=== PATIENT | male | born 1940 | race Caucasian/White ===

== ENCOUNTER 2018-11-26 10:17 | Outpatient (CLI) | payer MEDICARE, BC ==
--- NOTE | 2018-11-26 11:14 | RAD ---
CHEST 2 VIEWS: HISTORY: Dyspnea. COMPARISON: 06/09/2017. FINDINGS: Heart size is within normal limits. Moderate-sized hiatal hernia. Minimal increased linear and inte rstitial markings and biapical pleural thickening, evidence for stable-appearing chronic lung changes . No confluent pneumonia, overt edema, or pleural effusion. IMPRESSION: Stable-appearing mild chronic changes. Stable moderate-sized hiatal hernia. Atherosclerosis of the aorta. No significant acute process. POS: OFF
== END 2018-11-26 10:18 | disposition home or self-care (01) ==
LOC: RAD 10:17
PROVIDERS: ATTEND Internal Medicine Critical Care Medicine
DX: R06.00 Dyspnea, unspecified (principal); K44.9 Diaphragmatic hernia without obstruction or gangrene; I70.0 Atherosclerosis of aorta
CPT/HCPCS: 71046

== ENCOUNTER 2019-06-20 10:08 | Outpatient (CLI) | payer MEDICARE, BC ==
--- NOTE | 2019-06-20 12:15 | RAD ---
PA AND LATERAL CHEST: Date: 06/20/19 INDICATION: History of dyspnea. COMPARISON: Prior exam dated 11/26/18. FINDINGS: Cardiomegaly and chronic lung changes are stable. No acute air space opacity, pleural effusion, or pn eumothorax evident. There is a moderate size hiatal hernia. There is diffuse osteopenia. IMPRESSION: No acute cardiopulmonary abnormality. POS: [facility] [place]
== END 2019-06-20 10:09 | disposition home or self-care (01) ==
LOC: RAD 10:08
PROVIDERS: ATTEND Internal Medicine Critical Care Medicine
DX: R06.00 Dyspnea, unspecified (principal)
CPT/HCPCS: 71046

== ENCOUNTER 2021-06-06 10:19 | Outpatient (CLI) | payer MEDICARE, BC | END 2021-06-06 10:20 | disposition home or self-care (01) | LOC: BICRAD 10:19 | PROVIDERS: ATTEND Internal Medicine Critical Care Medicine | DX: R06.00 Dyspnea, unspecified (principal); K44.9 Diaphragmatic hernia without obstruction or gangrene; R91.8 Other nonspecific abnormal finding of lung field | CPT/HCPCS: 71046 ==

== ENCOUNTER 2022-09-14 16:27 | Inpatient (IN) | payer MEDICARE, BC ==
[2022-09-14 17:56] LABS: #Eosinphils 0.2 thou/uL (0.0-0.7); #Lymphocytes 1.3 thou/uL (1.20-3.40); #Monocytes 0.7 thou/uL (0.11-0.59); #Neutrophils 3.1 thou/uL (1.40-6.50); %Basophils 0.4 % (0.0-1.0); %Eosinophils 3.4 % (0.0-10.0); %Neutrophils 58.2 % (42.0-75.0); Hemoglobin 14.8 g/dL (14.0-18.0); Mean Corpuscular HGB CONC 33.5 g/dL (32.0-36.0); Mean Corpuscular Hemoglobin 32.2 pg (27.0-31.0); Mean Corpuscular Volume 96.1 fl (78.0-98.0); Mean Platelet Volume 7.5 fL (7.4-10.4); Platelet Count 117 10x3/uL (130-400); RBC Distribution Width 11.5 % (11.5-14.5); White Blood Cell (WBC) Count 5.3 10x3/uL (4.8-10.8)
[2022-09-14 18:14] LABS: ALT (SGPT) 30 U/L (8-55); AST (SGOT) 31 U/L (5-34); Albumin 4.4 g/dL (3.4-4.8); Alkaline Phosphatase 50 U/L (40-110); Anion Gap 17 mmol/L (10-20); BUN (Urea Nitrogen) 19 mg/dL (8.4-25.7); Bilirubin, Total 0.9 mg/dL (0.2-1.2); CK (CPK) 125 U/L (30-200); Calc. Creatinine Clearance 0 mL/min (70-130); Calcium 9.2 mg/dL (7.8-10.44); Carbon Dioxide 24 mmol/L (23-31); Chloride 100 mmol/L (98-107); Estimated GFR 41; Globulin 3.2 g/dL (2.4-3.5); Glucose 83 mg/dL (83-110); Magnesium 1.8 mg/dL (1.6-2.6); Potassium 3.7 mmol/L (3.5-5.1); Protein, Total 7.6 g/dL (5.8-8.1); Sodium 137 mmol/L (136-145)
[2022-09-14] MEDS ORDERED: cefTRIAXone\\ROCEPHIN 1 GM VIAL ONE (18:23)
[2022-09-14 18:28] LABS: Platelet Morphology Comment Appears Decreased; RBC Morphology Normal
[2022-09-14] MEDS ORDERED: Labetalol HCl 100 MG/20 ML VIAL ONE (18:32)
[2022-09-14] MEDS ORDERED: Azithromycin 500 MG VIAL ONE (18:57)
[2022-09-14] MEDS ORDERED: Acetaminophen 650 MG Suppository ONE (19:56)
[2022-09-14] MEDS ORDERED: Acetaminophen 325 MG Suppository ONE (19:56)
[2022-09-14 20:25] LABS: Bacteria/HPF None Seen HPF (None Seen); Bilirubin Negative (Negative); Blood, Urine Negative (Negative); Clarity Clear (Clear); Glucose, Urine (Dipstick) Normal (Negative); Ketone, Urine Trace mg/dL (Negative); Leukocyte Negative Leu/uL (Negative); Mucous/LPF Rare LPF (<2+); Nitrite Negative (Negative); Protein, Urine (Dipstick) 50 mg/dL (Neg-Trace); RBC/HPF 0-3 HPF (0-3); Specific Gravity, Urine 1.022 (1.002-1.036); Squamous Epithelial 0-3 HPF (0-3); Urobilinogen Normal mg/dL (Less than 2); WBC/HPF 0-3 HPF (0-3)
[2022-09-14 20:30] LABS: Amphetamine Not Detected (NotDetected); Barbiturates Screen Not Detected (NotDetected); Benzodiazepine Screen Not Detected (NotDetected); Cocaine Metabolite Screen Not Detected (NotDetected); Methadone Not Detected (NotDetected); Methamphetamine Not Detected (NotDetected); Opiate Screen Not Detected (NotDetected); Oxycodone Screen Not Detected (NotDetected); Phencyclidine (PCP) Not Detected (NotDetected); THC/Cannabinoid Screen Not Detected (NotDetected); Tricyclic Screen Not Detected (NotDetected)
[2022-09-14] MEDS ORDERED: Ondansetron PF 4 MG/2 ML Vial IVP PRN (21:15)
[2022-09-14] MEDS ORDERED: Acetaminophen 325 MG TAB PO PRN (21:15)
[2022-09-14] MEDS ORDERED: Ondansetron ODT 4 MG TAB SL PRN (21:15)
[2022-09-15 04:23] VITALS: BMI 39.7
[2022-09-15] MEDS ORDERED: Benzonatate 100 MG CAP PO PRN (08:06)
[2022-09-15] MEDS ORDERED: Acetaminophen 325 MG TAB PO PRN (08:06)
[2022-09-15] MEDS ORDERED: Levothyroxine Sodium 75 MCG TAB PO SCH (08:15)
[2022-09-15] MEDS: Enoxaparin Sodium 40 MG/0.4 ML SYRINGE SC SCH (09:59)
[2022-09-15] MEDS: Hydrocortisone 10 mg Tablet PO SCH ×2 (10:00→21:30)
[2022-09-15] MEDS: Ezetimibe 10 MG TAB PO SCH (10:00)
[2022-09-15] MEDS: Aspirin Chewable 81 MG TAB PO SCH (10:00)
[2022-09-15] MEDS: Lisinopril 5 MG TAB PO SCH (10:00)
[2022-09-15] MEDS: cefTRIAXone\\ROCEPHIN 1 GM in Sodium Chloride 0.9% 100 ML IVPB SCH (18:13)
[2022-09-15] MEDS ORDERED: Atorvastatin Calcium 40 MG TAB PO SCH (21:00)
[2022-09-15] MEDS: Azithromycin 500 MG in Sodium Chloride 0.9% 250 ML 250 ML IVPB SCH (21:29)
[2022-09-15] MEDS ORDERED: Albuterol 200 PUFF (6.7GM INHALER) INH PRN (23:41)
[2022-09-16] MEDS: hydrALAZINE 20 MG/ML VIAL SLOW IVP PRN (04:44)
[2022-09-16 05:14] LABS: Anion Gap 13 mmol/L (10-20); BUN (Urea Nitrogen) 13 mg/dL (8.4-25.7); Calc. Creatinine Clearance 84 mL/min (70-130); Calcium 9.2 mg/dL (7.8-10.44); Carbon Dioxide 22 mmol/L (23-31); Chloride 103 mmol/L (98-107); Estimated GFR 62; Glucose 88 mg/dL (83-110); Potassium 4.1 mmol/L (3.5-5.1); Sodium 134 mmol/L (136-145)
[2022-09-16 05:50] LABS: Band 4 % (5-11); Eosinophils 1 % (0-10); Hemoglobin 13.9 g/dL (14.0-18.0); Lymphocytes 14 % (21-51); MDiff Complete? YES; Mean Corpuscular HGB CONC 34.2 g/dL (32.0-36.0); Mean Corpuscular Hemoglobin 32.3 pg (27.0-31.0); Mean Corpuscular Volume 94.4 fl (78.0-98.0); Mean Platelet Volume 7.9 fL (7.4-10.4); Monocytes 17 % (0-10); Neutrophil 59 % (42-75); Platelet Count 110 10x3/uL (130-400); Platelet Morphology Comment Appears Decreased; RBC Distribution Width 11.2 % (11.5-14.5); RBC Morphology Normal; Reactive Lymphocytes 5 % (0-10); Red Blood Cell (RBC) Count 4.29 mill/uL (4.70-6.10)
[2022-09-16] MEDS: Levothyroxine Sodium 75 MCG TAB PO SCH (06:24)
[2022-09-16] MEDS: Lisinopril 5 MG TAB PO SCH (08:54)
[2022-09-16] MEDS: Ezetimibe 10 MG TAB PO SCH (08:54)
[2022-09-16] MEDS: Aspirin Chewable 81 MG TAB PO SCH (08:54)
[2022-09-16] MEDS: Hydrocortisone 10 mg Tablet PO SCH ×2 (08:54→20:57)
[2022-09-16] MEDS: Enoxaparin Sodium 40 MG/0.4 ML SYRINGE SC SCH (08:55)
[2022-09-16] MEDS: cefTRIAXone\\ROCEPHIN 1 GM in Sodium Chloride 0.9% 100 ML IVPB SCH (16:45)
[2022-09-16] MEDS: NIRMATRELVIR 150 MG/RITONAVIR 100 MG PO SCH (20:54)
[2022-09-16] MEDS: Azithromycin 500 MG in Sodium Chloride 0.9% 250 ML 250 ML IVPB SCH (20:55)
[2022-09-17] MEDS: Levothyroxine Sodium 75 MCG TAB PO SCH (06:30)
[2022-09-17] MEDS: hydrALAZINE 20 MG/ML VIAL SLOW IVP PRN (06:30)
[2022-09-17] MEDS: Aspirin Chewable 81 MG TAB PO SCH (10:20)
[2022-09-17] MEDS: Enoxaparin Sodium 40 MG/0.4 ML SYRINGE SC SCH (10:20)
[2022-09-17] MEDS: Ezetimibe 10 MG TAB PO SCH (10:21)
[2022-09-17] MEDS: Lisinopril 5 MG TAB PO SCH (10:22)
[2022-09-17] MEDS: Hydrocortisone 10 mg Tablet PO SCH ×2 (10:22→20:57)
[2022-09-17] MEDS: NIRMATRELVIR 150 MG/RITONAVIR 100 MG PO SCH ×2 (10:23→20:57)
[2022-09-17] MEDS ORDERED: Zinc Sulfate 220 MG CAP PO SCH (12:45)
[2022-09-17] MEDS ORDERED: Ascorbic Acid 500 mg Chewable Tablet PO SCH (12:45)
[2022-09-17] MEDS: cefTRIAXone\\ROCEPHIN 1 GM in Sodium Chloride 0.9% 100 ML IVPB SCH (17:11)
[2022-09-17] MEDS: Azithromycin 500 MG in Sodium Chloride 0.9% 250 ML 250 ML IVPB SCH (20:57)
[2022-09-18] MEDS: Levothyroxine Sodium 75 MCG TAB PO SCH (06:18)
[2022-09-18] MEDS: Aspirin Chewable 81 MG TAB PO SCH (09:41)
[2022-09-18] MEDS: Enoxaparin Sodium 40 MG/0.4 ML SYRINGE SC SCH (09:41)
[2022-09-18] MEDS: Ascorbic Acid 500 mg Chewable Tablet PO SCH (09:41)
[2022-09-18] MEDS: Lisinopril 5 MG TAB PO SCH (09:42)
[2022-09-18] MEDS: Ezetimibe 10 MG TAB PO SCH (09:43)
[2022-09-18] MEDS: NIRMATRELVIR 150 MG/RITONAVIR 100 MG PO SCH (09:43)
[2022-09-18] MEDS: Zinc Sulfate 220 MG CAP PO SCH (09:43)
[2022-09-18] MEDS: Hydrocortisone 10 mg Tablet PO SCH ×2 (09:43→20:50)
[2022-09-18] MEDS: cefTRIAXone\\ROCEPHIN 1 GM in Sodium Chloride 0.9% 100 ML IVPB SCH (18:51)
[2022-09-18] MEDS: Azithromycin 500 MG in Sodium Chloride 0.9% 250 ML 250 ML IVPB SCH (20:50)
[2022-09-19] MEDS: NIRMATRELVIR 150 MG/RITONAVIR 100 MG PO SCH ×3 (01:05→19:28)
[2022-09-19] MEDS: Levothyroxine Sodium 75 MCG TAB PO SCH (05:20)
[2022-09-19] MEDS: Enoxaparin Sodium 40 MG/0.4 ML SYRINGE SC SCH (08:37)
[2022-09-19] MEDS: Ascorbic Acid 500 mg Chewable Tablet PO SCH (08:38)
[2022-09-19] MEDS: Zinc Sulfate 220 MG CAP PO SCH (08:38)
[2022-09-19] MEDS: Ezetimibe 10 MG TAB PO SCH (08:38)
[2022-09-19] MEDS: Aspirin Chewable 81 MG TAB PO SCH (08:38)
[2022-09-19] MEDS: Lisinopril 5 MG TAB PO SCH (08:38)
[2022-09-19 08:45] VITALS: BP 139/79; TEMP 97.6
[2022-09-19] MEDS: Hydrocortisone 10 mg Tablet PO SCH ×2 (09:48→19:27)
[2022-09-19] MEDS: cefTRIAXone\\ROCEPHIN 1 GM in Sodium Chloride 0.9% 100 ML IVPB SCH (17:25)
== END 2022-09-19 19:50 | disposition home health service (06) | DRG 177 ==
LOC: ERS 16:27 → 2NO 20:03 → T4-B 09-18 18:27
PROVIDERS: ADMIT Internal Medicine; ATTEND Internal Medicine
PROC: 8E0ZXY6 Isolation (ICD-10-PCS; 2022-09-15)
PROC: XW0DXF5 Introduction of Other New Technology Therapeutic Substance into Mouth and Pharynx, External Approach, New Technology Group 5 (ICD-10-PCS; principal; 2022-09-16)
DX: U07.1 COVID-19 (principal); G93.41 Metabolic encephalopathy; J12.82 Pneumonia due to coronavirus disease 2019; J18.9 Pneumonia, unspecified organism; N17.9 Acute kidney failure, unspecified; E23.0 Hypopituitarism; K21.9 Gastro-esophageal reflux disease without esophagitis; E78.5 Hyperlipidemia, unspecified; I25.10 Atherosclerotic heart disease of native coronary artery without angina pectoris; N18.2 Chronic kidney disease, stage 2 (mild); I12.9 Hypertensive chronic kidney disease with stage 1 through stage 4 chronic kidney disease, or unspecified chronic kidney disease; Z79.899 Other long term (current) drug therapy; Z79.82 Long term (current) use of aspirin; Z79.890 Hormone replacement therapy; Z79.02 Long term (current) use of antithrombotics/antiplatelets; Z95.828 Presence of other vascular implants and grafts; Z87.891 Personal history of nicotine dependence
CPT/HCPCS: 36415; 36416; 51701; 70450; 71045; 80048; 80053; 80306; 81003; 81015; 82550; 83605; 83735; 84484; 85025; 87040; 93005; 94760; 96365; 96375; J0360; J0456; J0696; J1650; J3490; J7050; U0003; U0005

== ENCOUNTER 2023-11-01 12:58 | Inpatient (IN) | payer MEDICARE, BC ==
[~2023-11-01 12:58] MED LIST: Iopamidol-370 76% 500 ML MDV (1 ML CHARGE) ONE
[2023-11-01 14:12] LABS: Hematocrit 30.5 % (42.0-52.0); Hemoglobin 9.6 g/dL (14.0-18.0); Manual Diff?? YES; Mean Corpuscular HGB CONC 31.5 g/dL (32.0-36.0); Mean Corpuscular Hemoglobin 28.2 pg (27.0-31.0); Mean Corpuscular Volume 89.4 fl (78.0-98.0); Mean Platelet Volume 9.2 fL (7.4-10.4); Platelet Count 128 10x3/uL (130-400); RBC Distribution Width 13.9 % (11.5-14.5); Red Blood Cell (RBC) Count 3.41 mill/uL (4.70-6.10); White Blood Cell (WBC) Count 3.7 10x3/uL (4.8-10.8)
[2023-11-01 14:14] LABS: Delete Auto Diff?? YES
[2023-11-01] MEDS ORDERED: Cefepime 2 GM VIAL ONE (14:18)
[2023-11-01] MEDS ORDERED: Sodium Chloride 0.9% 100 ML ONE (14:18)
[2023-11-01] MEDS ORDERED: Vancomycin (BATCH) 1.75 GM in Premix 1 BAG IVPB SCH (14:30)
[2023-11-01 14:32] LABS: ALT (SGPT) 17 U/L (8-55); AST (SGOT) 25 U/L (5-34); Albumin 3.6 g/dL (3.4-4.8); Alkaline Phosphatase 39 U/L (40-110); Anion Gap 10 mmol/L (10-20); BUN (Urea Nitrogen) 12 mg/dL (8.4-25.7); Bilirubin, Total 0.7 mg/dL (0.2-1.2); Calc. Creatinine Clearance 0 mL/min (70-130); Calcium 8.2 mg/dL (7.8-10.44); Carbon Dioxide 23 mmol/L (23-31); Chloride 104 mmol/L (98-107); Estimated GFR 59; Globulin 2.6 g/dL (2.4-3.5); Glucose 91 mg/dL (83-110); Magnesium 1.8 mg/dL (1.6-2.6); Potassium 3.9 mmol/L (3.5-5.1); Protein, Total 6.2 g/dL (5.8-8.1); Sodium 133 mmol/L (136-145)
[2023-11-01 14:44] LABS: Troponin I 0.016 ng/mL (< 0.028)
[2023-11-01 14:44] LABS: Bacteria/HPF None Seen HPF (None Seen); Bilirubin Negative (Negative); Blood, Urine Negative (Negative); CAUTI Indications for Culture Alt mental st,lethar; Clarity Clear (Clear); Glucose, Urine (Dipstick) Normal (Negative); Ketone, Urine Negative (Negative); Leukocyte Negative Leu/uL (Negative); Nitrite Negative (Negative); Protein, Urine (Dipstick) Negative (Neg-Trace); RBC/HPF 0-3 HPF (0-3); Specific Gravity, Urine 1.022 (1.002-1.036); Squamous Epithelial None Seen HPF (0-3); Urobilinogen Normal mg/dL (Less than 2); WBC/HPF 0-3 HPF (0-3); pH, Urine 5.5 (5.0-9.0)
[2023-11-01 14:49] LABS: SARS-CoV-2 NAA Rapid Test DETECTED (NotDetected)
[2023-11-01 14:49] LABS: Urine Culture Reflex No No
[2023-11-01 14:53] LABS: Band 4 % (5-11); CellaVision Operator ID LAB.KW3; Eosinophils 2 % (0-10); Large Platelets 1.7 % (0-5); Lymphocytes 24 % (21-51); Monocytes 11 % (0-10); Neutrophil 59 % (42-75); Ovalocytes SLIGHT = 2-5 cells HPF (0-1); Platelet Adequacy Comment Platelets Decreased; Polychromasia SLIGHT = 2-3 cells HPF (0-2); Total Cell Count 115
[2023-11-01] MEDS ORDERED: Dexamethasone 4 mg/ml Vial SLOW IVP SCH (17:13)
[2023-11-01] MEDS ORDERED: Ondansetron PF 4 MG/2 ML Vial IVP PRN (17:18)
[2023-11-01] MEDS ORDERED: Ondansetron ODT 4 MG TAB PO PRN (17:18)
[2023-11-01] MEDS ORDERED: Acetaminophen 650 MG Suppository PR PRN (17:18)
[2023-11-01] MEDS ORDERED: Acetaminophen 325 MG TAB PO PRN (17:18)
[2023-11-01] MEDS ORDERED: Benzonatate 100 MG CAP PO PRN (17:20)
[2023-11-01] MEDS ORDERED: Albuterol 200 PUFF (6.7GM INHALER) INH PRN (17:20)
[2023-11-01] MEDS ORDERED: Loratadine 10 MG TAB PO PRN (17:32)
[2023-11-01] MEDS: Sodium Chloride 0.9% 1,000 ML IV SCH (21:30)
[2023-11-01] MEDS: Ciprofloxacin Lactate/D5W 400 MG in Premix 1 BAG IVPB SCH (21:30)
[2023-11-01] MEDS: metroNIDAZOLE 500 MG TAB PO SCH (21:31)
[2023-11-01] MEDS: Tamsulosin HCl 0.4 MG CAP PO SCH (21:31)
[2023-11-01] MEDS: Atorvastatin Calcium 40 MG TAB PO SCH (21:31)
[2023-11-01 23:45] VITALS: BMI 34.2
[2023-11-02 04:43] LABS: #Monocytes 0.2 thou/uL (0.11-0.59); #Neutrophils 2.5 thou/uL (1.40-6.50); %Eosinophils 0.3 % (0.0-10.0); %Lymphocytes 14.3 % (21.0-51.0); %Monocytes 4.8 % (0.0-10.0); %Neutrophils 80.3 % (42.0-75.0); Hematocrit 30.8 % (42.0-52.0); Hemoglobin 9.8 g/dL (14.0-18.0); Mean Corpuscular HGB CONC 31.8 g/dL (32.0-36.0); Mean Corpuscular Hemoglobin 27.9 pg (27.0-31.0); Mean Corpuscular Volume 87.7 fl (78.0-98.0); Mean Platelet Volume 9.8 fL (7.4-10.4); Platelet Count 120 10x3/uL (130-400); RBC Distribution Width 13.8 % (11.5-14.5); Red Blood Cell (RBC) Count 3.51 mill/uL (4.70-6.10); White Blood Cell (WBC) Count 3.2 10x3/uL (4.8-10.8)
[2023-11-02] MEDS: Levothyroxine Sodium 50 MCG TAB PO SCH (04:46)
[2023-11-02 05:10] LABS: ALT (SGPT) 19 U/L (8-55); AST (SGOT) 28 U/L (5-34); Albumin 3.6 g/dL (3.4-4.8); Alkaline Phosphatase 38 U/L (40-110); Anion Gap 11 mmol/L (10-20); BUN (Urea Nitrogen) 9 mg/dL (8.4-25.7); Bilirubin, Total 0.7 mg/dL (0.2-1.2); CRP (Inflammatory) 0.79 mg/dL (= or < 0.5); Calc. Creatinine Clearance 89 mL/min (70-130); Calcium 8.4 mg/dL (7.8-10.44); Carbon Dioxide 19 mmol/L (23-31); Chloride 104 mmol/L (98-107); Estimated GFR 71; Globulin 2.8 g/dL (2.4-3.5); Glucose 146 mg/dL (83-110); Potassium 4.2 mmol/L (3.5-5.1); Protein, Total 6.4 g/dL (5.8-8.1); Sodium 130 mmol/L (136-145)
[2023-11-02] MEDS: Dexamethasone 4 mg/ml Vial SLOW IVP SCH (09:03)
[2023-11-02] MEDS: Ciprofloxacin Lactate/D5W 400 MG in Premix 1 BAG IVPB SCH ×2 (09:03→20:52)
[2023-11-02] MEDS: Zinc Sulfate 220 MG CAP PO SCH (09:03)
[2023-11-02] MEDS: Ezetimibe 10 MG TAB PO SCH (09:04)
[2023-11-02] MEDS: Sertraline 25 MG TAB PO SCH (09:04)
[2023-11-02] MEDS: metroNIDAZOLE 500 MG TAB PO SCH ×3 (09:04→20:47)
[2023-11-02] MEDS: Ascorbic Acid 500 mg Chewable Tablet PO SCH (09:04)
[2023-11-02] MEDS: Cholecalciferol (Vitamin D3) 400 UNITS TAB PO SCH (09:04)
[2023-11-02] MEDS: Sodium Chloride 0.9% 1,000 ML IV SCH (09:04)
[2023-11-02 14:13] LABS: #Monocytes 0.2 thou/uL (0.11-0.59); #Neutrophils 3.5 thou/uL (1.40-6.50); %Lymphocytes 8.7 % (21.0-51.0); %Monocytes 4.2 % (0.0-10.0); %Neutrophils 86.6 % (42.0-75.0); Hematocrit 30.2 % (42.0-52.0); Hemoglobin 9.5 g/dL (14.0-18.0); Mean Corpuscular HGB CONC 31.5 g/dL (32.0-36.0); Mean Corpuscular Hemoglobin 28.1 pg (27.0-31.0); Mean Corpuscular Volume 89.3 fl (78.0-98.0); Mean Platelet Volume 9.7 fL (7.4-10.4); Platelet Count 126 10x3/uL (130-400); RBC Distribution Width 13.7 % (11.5-14.5); Red Blood Cell (RBC) Count 3.38 mill/uL (4.70-6.10)
[2023-11-02 14:36] LABS: Anion Gap 14 mmol/L (10-20); BUN (Urea Nitrogen) 9 mg/dL (8.4-25.7); Calc. Creatinine Clearance 86 mL/min (70-130); Calcium 8.5 mg/dL (7.8-10.44); Carbon Dioxide 17 mmol/L (23-31); Chloride 106 mmol/L (98-107); Estimated GFR 68; Glucose 257 mg/dL (83-110); Sodium 133 mmol/L (136-145)
[2023-11-02] MEDS: Tamsulosin HCl 0.4 MG CAP PO SCH (20:47)
[2023-11-02] MEDS: Atorvastatin Calcium 40 MG TAB PO SCH (20:47)
[2023-11-03] MEDS: Sodium Chloride 0.9% 1,000 ML IV SCH ×2 (00:43→11:08)
[2023-11-03] MEDS: Levothyroxine Sodium 50 MCG TAB PO SCH (06:19)
[2023-11-03 07:54] VITALS: BP 170/73; TEMP 98.4
[2023-11-03] MEDS: Cholecalciferol (Vitamin D3) 400 UNITS TAB PO SCH (10:29)
[2023-11-03] MEDS: Zinc Sulfate 220 MG CAP PO SCH (10:29)
[2023-11-03] MEDS: metroNIDAZOLE 500 MG TAB PO SCH (10:29)
[2023-11-03] MEDS: Ascorbic Acid 500 mg Chewable Tablet PO SCH (10:29)
[2023-11-03] MEDS: Ezetimibe 10 MG TAB PO SCH (10:29)
[2023-11-03] MEDS: Sertraline 25 MG TAB PO SCH (10:29)
[2023-11-03] MEDS: Ciprofloxacin Lactate/D5W 400 MG in Premix 1 BAG IVPB SCH (11:08)
[2023-11-03] MEDS: Dexamethasone 4 mg/ml Vial SLOW IVP SCH (11:08)
== END 2023-11-03 13:55 | DRG 391 ==
LOC: ERS 12:58 → 2NO 16:04
PROVIDERS: ADMIT Family Medicine; ATTEND Internal Medicine
DX: K52.9 Noninfective gastroenteritis and colitis, unspecified (principal); U07.1 COVID-19; E23.0 Hypopituitarism; E03.9 Hypothyroidism, unspecified; E78.5 Hyperlipidemia, unspecified; K21.9 Gastro-esophageal reflux disease without esophagitis; Z79.899 Other long term (current) drug therapy; F03.90 Unspecified dementia, unspecified severity, without behavioral disturbance, psychotic disturbance, mood disturbance, and anxiety; Z95.5 Presence of coronary angioplasty implant and graft; D64.9 Anemia, unspecified; Z66 Do not resuscitate; Z87.891 Personal history of nicotine dependence; R09.02 Hypoxemia; I25.10 Atherosclerotic heart disease of native coronary artery without angina pectoris; I12.9 Hypertensive chronic kidney disease with stage 1 through stage 4 chronic kidney disease, or unspecified chronic kidney disease; N18.30 Chronic kidney disease, stage 3 unspecified; F41.9 Anxiety disorder, unspecified; F32.A Depression, unspecified; Z79.52 Long term (current) use of systemic steroids; I25.2 Old myocardial infarction; Z86.16 Personal history of COVID-19; Z82.49 Family history of ischemic heart disease and other diseases of the circulatory system
CPT/HCPCS: 36415; 71045; 74177; 80053; 81001; 83605; 83735; 83880; 84484; 85025; 86140; 87040; 87086; 93005; 96361; 96365; 96366; 96375; 97139; J0692; J0744; J1100; J3370; J3490; J7050; Q9967

== ENCOUNTER 2023-12-27 19:20 | Inpatient (IN) | payer MEDICARE, BC ==
[2023-12-27] MEDS ORDERED: Acetaminophen 325 MG TAB PO PRN (22:28)
[2023-12-27] MEDS ORDERED: Ondansetron PF 4 MG/2 ML Vial IVP PRN (22:28)
[2023-12-27] MEDS ORDERED: Loratadine 10 MG TAB PO PRN (22:57)
[2023-12-27 23:03] LABS: #Eosinphils 0.1 thou/uL (0.0-0.7); #Monocytes 0.5 thou/uL (0.11-0.59); #Neutrophils 3.1 thou/uL (1.40-6.50); %Basophils 0.2 % (0.0-1.0); %Eosinophils 2.1 % (0.0-10.0); %Lymphocytes 33.7 % (21.0-51.0); %Monocytes 8.9 % (0.0-10.0); %Neutrophils 54.6 % (42.0-75.0); Hematocrit 21.3 % (42.0-52.0); Hemoglobin 6.1 g/dL (14.0-18.0); Mean Corpuscular HGB CONC 28.6 g/dL (32.0-36.0); Mean Corpuscular Hemoglobin 21.8 pg (27.0-31.0); Mean Corpuscular Volume 76.1 fl (78.0-98.0); Mean Platelet Volume 10.1 fL (7.4-10.4); Platelet Count 197 10x3/uL (130-400); RBC Distribution Width 17.3 % (11.5-14.5); White Blood Cell (WBC) Count 5.6 10x3/uL (4.8-10.8)
[2023-12-27 23:30] LABS: Iron Binding Capacity, Total 353 mcg/dL (261-462)
[2023-12-27 23:31] LABS: Iron 9 ug/dL (65-175)
[2023-12-27 23:50] LABS: INR-International Normal Ratio 1.1; PTT 28.3 sec (22.9-36.1); Prothrombin Time 13.9 sec (12.0-14.7)
[2023-12-27 23:55] LABS: Ferritin 9.87 ng/mL (22-322)
[2023-12-28] MEDS: Levothyroxine Sodium 50 MCG TAB PO SCH (05:09)
[2023-12-28] MEDS: Cyanocobalamin 1000 MCG/ML VIAL IM SCH (05:09)
[2023-12-28 05:17] LABS: #Eosinphils 0.2 thou/uL (0.0-0.7); #Monocytes 0.7 thou/uL (0.11-0.59); #Neutrophils 2.8 thou/uL (1.40-6.50); %Basophils 0.3 % (0.0-1.0); %Eosinophils 2.6 % (0.0-10.0); %Lymphocytes 36.7 % (21.0-51.0); %Monocytes 11.8 % (0.0-10.0); %Neutrophils 48.3 % (42.0-75.0); Hematocrit 24.3 % (42.0-52.0); Hemoglobin 7.2 g/dL (14.0-18.0); Mean Corpuscular HGB CONC 29.6 g/dL (32.0-36.0); Mean Corpuscular Volume 77.6 fl (78.0-98.0); Mean Platelet Volume 10.2 fL (7.4-10.4); Platelet Count 193 10x3/uL (130-400); RBC Distribution Width 17.8 % (11.5-14.5); Red Blood Cell (RBC) Count 3.13 mill/uL (4.70-6.10); White Blood Cell (WBC) Count 5.8 10x3/uL (4.8-10.8)
[2023-12-28 05:40] LABS: Anion Gap 13 mmol/L (10-20); BUN (Urea Nitrogen) 13 mg/dL (8.4-25.7); Calc. Creatinine Clearance 80 mL/min (70-130); Carbon Dioxide 20 mmol/L (23-31); Chloride 106 mmol/L (98-107); Estimated GFR 65; Glucose 74 mg/dL (83-110); Potassium 3.9 mmol/L (3.5-5.1); Sodium 135 mmol/L (136-145)
[2023-12-28] MEDS: Ferrous Sulfate 325 MG TAB PO SCH (09:43)
[2023-12-28] MEDS: Sertraline 25 MG TAB PO SCH (09:45)
[2023-12-28] MEDS: Hydrocortisone 10 mg Tablet PO SCH ×2 (09:45→21:14)
[2023-12-28] MEDS: Pantoprazole 40 MG VIAL IVP SCH (09:46)
[2023-12-28] MEDS: Tamsulosin HCl 0.4 MG CAP PO SCH (21:14)
[2023-12-28] MEDS: Atorvastatin Calcium 40 MG TAB PO SCH (21:14)
[2023-12-29 01:37] VITALS: BMI 32.8
[2023-12-29 05:09] LABS: #Eosinphils 0.1 thou/uL (0.0-0.7); #Monocytes 0.6 thou/uL (0.11-0.59); #Neutrophils 2.5 thou/uL (1.40-6.50); %Basophils 0.4 % (0.0-1.0); %Eosinophils 2.6 % (0.0-10.0); %Monocytes 12.6 % (0.0-10.0); %Neutrophils 52.8 % (42.0-75.0); Hematocrit 25.4 % (42.0-52.0); Hemoglobin 7.5 g/dL (14.0-18.0); Mean Corpuscular HGB CONC 29.5 g/dL (32.0-36.0); Mean Corpuscular Hemoglobin 22.7 pg (27.0-31.0); Mean Platelet Volume 9.3 fL (7.4-10.4); Platelet Count 175 10x3/uL (130-400); RBC Distribution Width 17.6 % (11.5-14.5); White Blood Cell (WBC) Count 4.7 10x3/uL (4.8-10.8)
[2023-12-29 05:27] LABS: Anion Gap 13 mmol/L (10-20); BUN (Urea Nitrogen) 11 mg/dL (8.4-25.7); Calc. Creatinine Clearance 78 mL/min (70-130); Calcium 9.4 mg/dL (7.8-10.44); Carbon Dioxide 22 mmol/L (23-31); Chloride 107 mmol/L (98-107); Estimated GFR 63; Glucose 97 mg/dL (83-110); Potassium 4.2 mmol/L (3.5-5.1); Sodium 138 mmol/L (136-145)
[2023-12-29] MEDS ORDERED: PROPOFOL 40 ML ONE (10:54)
[2023-12-29] MEDS ORDERED: Glycopyrrolate 0.2 MG/ML 5 ML SYRINGE ONE (10:55)
[2023-12-29] MEDS ORDERED: PHENYLEPHRINE-NS 100 MCG/ML 10 ML SYRINGE ONE (11:09)
[2023-12-29] MEDS ORDERED: ePHEDrine Sulfate 50 MG/10 ML VIAL ONE (11:17)
[2023-12-29] MEDS ORDERED: Artificial Tear Sol 15 ML BOT EA EYE PRN (12:38)
[2023-12-29 15:20] VITALS: BP 100/50; TEMP 97.8
[2023-12-29] MEDS ORDERED: Midodrine HCl 5 MG TAB PO SCH (21:00)
[2023-12-30] MEDS ORDERED: Ascorbic Acid 500 mg Chewable Tablet PO SCH (09:00)
[2023-12-30] MEDS ORDERED: Ezetimibe 10 MG TAB PO SCH (09:00)
== END 2023-12-29 17:25 | DRG 378 ==
LOC: 2SW 21:16 → OBSVTOIN 12-28 15:00
PROVIDERS: ADMIT Internal Medicine; ATTEND Internal Medicine
PROC: 30233N1 Transfusion of Nonautologous Red Blood Cells into Peripheral Vein, Percutaneous Approach (ICD-10-PCS; 2023-12-28)
PROC: 0DB58ZX Excision of Esophagus, Via Natural or Artificial Opening Endoscopic, Diagnostic (ICD-10-PCS; principal; 2023-12-29)
DX: K25.4 Chronic or unspecified gastric ulcer with hemorrhage (principal); E23.0 Hypopituitarism; I25.10 Atherosclerotic heart disease of native coronary artery without angina pectoris; N18.30 Chronic kidney disease, stage 3 unspecified; E03.9 Hypothyroidism, unspecified; D64.9 Anemia, unspecified; E78.5 Hyperlipidemia, unspecified; N40.0 Benign prostatic hyperplasia without lower urinary tract symptoms; K21.9 Gastro-esophageal reflux disease without esophagitis; I12.9 Hypertensive chronic kidney disease with stage 1 through stage 4 chronic kidney disease, or unspecified chronic kidney disease; N18.31 Chronic kidney disease, stage 3a; Z66 Do not resuscitate; I71.40 Abdominal aortic aneurysm, without rupture, unspecified; D50.9 Iron deficiency anemia, unspecified; K44.9 Diaphragmatic hernia without obstruction or gangrene; K22.70 Barrett's esophagus without dysplasia; Z82.49 Family history of ischemic heart disease and other diseases of the circulatory system; Z79.899 Other long term (current) drug therapy; Z98.890 Other specified postprocedural states; Z79.890 Hormone replacement therapy; Z86.16 Personal history of COVID-19; Z87.891 Personal history of nicotine dependence
CPT/HCPCS: 36415; 36430; 80048; 82607; 82728; 83540; 83550; 85025; 85610; 85730; 86850; 86900; 86901; 88305; 88313; 96372; 96374; C9113; G0378; J2704; J3420; P9016